=== PATIENT | female | born 1965 | race Two or more races ===

== ENCOUNTER 2023-03-01 13:57 | Emergency (ER) | payer OTHER ==
[2023-03-01 14:05] VITALS: BP 150/92; PULSE 95; RESP 18; TEMP 98.1; BMI 19.7
[2023-03-01] MEDS ORDERED: DIPHTH,PERTUSS(ACELL),TET 0.5 ML DISP.SYRIN IM ONE (14:48)
[2023-03-01 15:20] LABS: EOS % 0.8 % (0-4.5); HEMATOCRIT 41.9 % (32.4-45.2); HEMOGLOBIN 13.3 GM/dL (10.7-15.3); LYMPH % 40.7 % (8-40); MCH 28.3 pg (25.7-33.7); MCHC 31.8 g/dl (32.0-36.0); MEAN CELL VOLUME 88.9 fl (80-96); MEAN PLT VOLUME 8.5 fl (7.5-11.1); MONO % 7.8 % (3.8-10.2); NEUT % 49.7 % (42.8-82.8); PLATELET COUNT 275 10^3/uL (134-434); RBC 4.71 M/mm3 (3.60-5.2); RDW 13.3 % (11.6-15.6)
[2023-03-01 15:37] LABS: CALCIUM 9.6 mg/dL (8.5-10.1)
[2023-03-01 15:38] LABS: ALBUMIN 3.8 g/dl (3.4-5.0)
[2023-03-01 15:39] LABS: BLOOD UREA NITROGEN 20.4 mg/dL (7-18)
[2023-03-01 15:41] LABS: CREATININE 0.8 mg/dL (0.55-1.3)
[2023-03-01 15:42] LABS: PHOSPHOROUS 3.5 mg/dL (2.5-4.9); URIC ACID 3.1 mg/dL (2.6-7.2)
[2023-03-01 15:43] LABS: TOT PROT 7.1 g/dl (6.4-8.2)
[2023-03-01 15:44] LABS: BILIRUBIN,TOTAL 0.6 mg/dL (0.2-1)
[2023-03-01 16:43] LABS: HIV INTERPRETATION NEGATIVE (NEGATIVE)
== END 2023-03-01 16:48 | disposition home or self-care (01) ==
LOC: JER 13:57 → JERFT 13:57
PROC: 3E0234Z Introduction of Serum, Toxoid and Vaccine into Muscle, Percutaneous Approach (ICD-10-PCS; principal; 2023-03-01)
DX: S61.432A Puncture wound without foreign body of left hand, initial encounter (principal); W46.1XXA Contact with contaminated hypodermic needle, initial encounter
CPT/HCPCS: 36415; 80053; 82465; 82977; 83615; 84100; 84478; 84550; 85025; 86704; 86803; 87340; 87389; 87517; 90715; 99283-25